=== PATIENT | male | born 1985 | race Caucasian/White ===

== ENCOUNTER 2020-04-10 06:49 | Outpatient (CLI) | payer BC ==
[2020-04-10] MEDS ORDERED: SODIUM BICARBONATE 4.2%, 5ML ONE (07:32)
[2020-04-10] MEDS ORDERED: LIDOCAINE 1%, 10ML ONE (07:32)
[2020-04-10] MEDS ORDERED: ROPivacaine/PF 0.2%, 10 ML ONE (07:32)
[2020-04-10] MEDS ORDERED: BUPIVACAINE/PF 0.5% ONE (07:32)
[2020-04-10] MEDS ORDERED: OMNIPAQUE 300 MG/ML, 10ML VIAL ONE (08:30)
== END 2020-04-10 23:59 | disposition home or self-care (01) ==
LOC: RAD 06:49
PROVIDERS: ATTEND Nurse Practitioner Family
DX: M25.512 Pain in left shoulder (principal); R20.2 Paresthesia of skin; M75.52 Bursitis of left shoulder; M75.22 Bicipital tendinitis, left shoulder
CPT/HCPCS: 23350; 73040; 73222; J2795; J3490; Q9967